=== PATIENT | female | born 1965 | race African-American/Black ===

== ENCOUNTER 2020-08-01 14:24 | Inpatient (IN) ==
[2020-08-01] MEDS ORDERED: ONDANSETRON 4 MG/2 ML VIAL IV STA ×2 (15:08→15:30)
[2020-08-01] MEDS ORDERED: MORPHINE 4 MG/1 ML VIAL IV STA ×2 (15:08→15:30)
[2020-08-01] MEDS ORDERED: DEXTROSE 50% 25 GM/50 ML VIAL IV PRN (15:42)
[2020-08-01] MEDS ORDERED: GLUCAGON 1 MG VIAL IM PRN (15:42)
[2020-08-01] MEDS ORDERED: MORPHINE 4 MG/1 ML VIAL IV PRN (15:42)
[2020-08-01] MEDS ORDERED: hydrALAZINE 20 MG/1 ML VIAL IV PRN (15:42)
[2020-08-01 15:56] LABS: Basophils % 0.4 % (0.0-0.8); Eosinophils # 0.1 10*3/uL (0.0-0.87); Eosinophils % 1.4 % (0.00-10.9); Hematocrit 36.5 VOL% (35.7-47.0); Hemoglobin 12.6 GM/DL (12.0-16.0); Immature Granulocytes % 0.4 %; Immature Granulocytes Absolute 0.04 #; Lymphocytes # 2.1 10*3/uL (1.4-4.0); Lymphocytes % 21.4 % (21.3-54.2); Mean Corpuscular HGB Conc 34.5 GM/DL (32-36); Mean Corpuscular Volume 88.8 FL (87-102); Mean Platelet Volume 10.1 FL (9.6-12.0); Monocytes % 7.7 % (1.7-12.7); Neutrophils % 68.7 % (38.7-73.9); Platelet Count 325 T/CUMM (130-400); Red Blood Count 4.11 MC/CUMM (3.8-5.5); Red Cell Distribution Width 14.2 % (9.3-17.3)
[2020-08-01 16:24] LABS: Calcium 9.3 MG/DL (8.5-10.1); Osmolality,Calculated 276.5 MOS/KG (273-304); Potassium 3.6 MMOL/L (3.5-5.1)
[2020-08-01] MEDS: HYDROmorphone 2 MG/1 ML VIAL IV PRN ×2 (19:56→23:47)
[2020-08-01] MEDS: ONDANSETRON 4 MG/2 ML VIAL IV PRN ×2 (19:57→23:50)
[2020-08-02] MEDS: HYDROmorphone 2 MG/1 ML VIAL IV PRN ×9 (03:10→23:46)
[2020-08-02 06:17] LABS: Basophils % 0.3 % (0.0-0.8); Eosinophils # 0.2 10*3/uL (0.0-0.87); Eosinophils % 1.7 % (0.00-10.9); Hematocrit 32.1 VOL% (35.7-47.0); Immature Granulocytes % 0.3 %; Immature Granulocytes Absolute 0.04 #; Lymphocytes # 3.5 10*3/uL (1.4-4.0); Lymphocytes % 29.6 % (21.3-54.2); Mean Corpuscular HGB Conc 34.3 GM/DL (32-36); Mean Corpuscular Volume 90.4 FL (87-102); Mean Platelet Volume 10.5 FL (9.6-12.0); Monocytes % 12.2 % (1.7-12.7); Neutrophils % 55.9 % (38.7-73.9); Platelet Count 272 T/CUMM (130-400); Red Blood Count 3.55 MC/CUMM (3.8-5.5); Red Cell Distribution Width 14.4 % (9.3-17.3); White Blood Count 11.8 T/CUMM (4-12)
[2020-08-02 06:45] LABS: Osmolality,Calculated 278.5 MOS/KG (273-304); Potassium 3.4 MMOL/L (3.5-5.1)
[2020-08-02] MEDS ORDERED: fentaNYL 100 MCG/2 ML VIAL ONE (06:51)
[2020-08-02] MEDS ORDERED: MIDAZOLAM 2 MG/2 ML VIAL ONE (06:51)
[2020-08-02] MEDS ORDERED: ceFAZolin 1,000 MG VIAL ONE (07:21)
[2020-08-02] MEDS ORDERED: KETOROLAC 30 MG/1 ML VIAL ONE (07:48)
[2020-08-02] MEDS ORDERED: LIDOCAINE 2% 5 ML VIAL ONE (07:48)
[2020-08-02] MEDS ORDERED: DEXAMETHASONE 4 MG/1 ML VIAL ONE (07:48)
[2020-08-02] MEDS ORDERED: ONDANSETRON 4 MG/2 ML VIAL ONE (07:48)
[2020-08-02] MEDS ORDERED: ACETAMINOPHEN INJ 1,000 MG/100 ML VIAL IV ONE (07:48)
[2020-08-02] MEDS ORDERED: propofoL 200 MG/20 ML VIAL IV ONE (07:48)
[2020-08-02] MEDS ORDERED: POTASSIUM CHLORIDE 20 MEQ TABLET PO ONE (07:50)
[2020-08-02] MEDS ORDERED: MEPERIDINE 25 MG/1 ML VIAL IV PRN (08:47)
[2020-08-02] MEDS ORDERED: ONDANSETRON 4 MG/2 ML VIAL IV PRN (08:47)
[2020-08-02] MEDS ORDERED: LACTATED RINGERS 1,000 ML IV ONE (08:50)
[2020-08-02] MEDS ORDERED: PHENYLEPHRINE 1 MG/10 ML SYRINGE IV ONE (08:50)
[2020-08-02] MEDS ORDERED: SEVOFLURANE 1 UNIT/15 MINUTE INH ONE ×2 (08:50→09:12)
[2020-08-02] MEDS: PANTOPRAZOLE 40 MG VIAL IV SCH (11:29)
[2020-08-02] MEDS ORDERED: diphenhydrAMINE CAP 25 MG CAPSULE PO PRN (20:30)
[2020-08-03] MEDS: HYDROmorphone 2 MG/1 ML VIAL IV PRN ×4 (05:45→17:20)
[2020-08-03] MEDS: ONDANSETRON 4 MG/2 ML VIAL IV PRN (05:54)
[2020-08-03 06:29] LABS: Basophils % 0.3 % (0.0-0.8); Eosinophils # 0.1 10*3/uL (0.0-0.87); Eosinophils % 0.7 % (0.00-10.9); Hematocrit 24.1 VOL% (35.7-47.0); Hemoglobin 8.5 GM/DL (12.0-16.0); Immature Granulocytes % 0.7 %; Immature Granulocytes Absolute 0.07 #; Lymphocytes # 2.2 10*3/uL (1.4-4.0); Lymphocytes % 21.1 % (21.3-54.2); Mean Corpuscular HGB Conc 35.3 GM/DL (32-36); Mean Corpuscular Volume 88.3 FL (87-102); Mean Platelet Volume 12.6 FL (9.6-12.0); Monocytes % 11.9 % (1.7-12.7); Neutrophils % 65.3 % (38.7-73.9); Platelet Count 137 T/CUMM (130-400); Red Blood Count 2.73 MC/CUMM (3.8-5.5); Red Cell Distribution Width 14.2 % (9.3-17.3); White Blood Count 10.5 T/CUMM (4-12)
[2020-08-03 06:44] LABS: Calcium 8.7 MG/DL (8.5-10.1); Osmolality,Calculated 279.5 MOS/KG (273-304); Potassium 3.9 MMOL/L (3.5-5.1)
[2020-08-03 06:46] LABS: Hypochromasia 1+; Microcytosis 1+; Platelet Estimate Adequate
[2020-08-03] MEDS: PANTOPRAZOLE 40 MG VIAL IV SCH (09:50)
[2020-08-03] MEDS: tiZANidine 4 MG TABLET PO SCH (20:46)
[2020-08-03] MEDS ORDERED: GABAPENTIN 300 MG CAPSULE PO SCH (21:00)
[2020-08-03] MEDS: SODIUM CHLORIDE 0.9% 1,000 ML IV SCH (21:40)
[2020-08-04] MEDS: HYDROmorphone 2 MG/1 ML VIAL IV PRN ×2 (00:13→03:49)
[2020-08-04 06:04] LABS: Basophils % 0.4 % (0.0-0.8); Eosinophils # 0.2 10*3/uL (0.0-0.87); Eosinophils % 1.8 % (0.00-10.9); Hematocrit 25.1 VOL% (35.7-47.0); Hemoglobin 8.9 GM/DL (12.0-16.0); Immature Granulocytes % 0.6 %; Immature Granulocytes Absolute 0.07 #; Lymphocytes # 2.5 10*3/uL (1.4-4.0); Lymphocytes % 22.9 % (21.3-54.2); Mean Corpuscular HGB Conc 35.5 GM/DL (32-36); Mean Platelet Volume 10.8 FL (9.6-12.0); Neutrophils % 64.3 % (38.7-73.9); Platelet Count 226 T/CUMM (130-400); Red Blood Count 2.82 MC/CUMM (3.8-5.5)
[2020-08-04 06:31] LABS: Calcium 8.9 MG/DL (8.5-10.1); Osmolality,Calculated 275.5 MOS/KG (273-304); Potassium 3.6 MMOL/L (3.5-5.1)
[2020-08-04] MEDS: tiZANidine 4 MG TABLET PO SCH (08:02)
[2020-08-04] MEDS: PANTOPRAZOLE 40 MG VIAL IV SCH (08:03)
[2020-08-04] MEDS ORDERED: busPIRone 10 MG TABLET PO SCH (09:00)
[2020-08-04] MEDS ORDERED: SERTRALINE 100 MG TABLET PO SCH (09:00)
[2020-08-04] MEDS: SODIUM CHLORIDE 0.9% 1,000 ML IV SCH (11:02)
[2020-08-04 11:16] VITALS: BP 113/50
== END 2020-08-04 12:45 | disposition home health service (06) | DRG 494 ==
LOC: EDUNIT# → N.ED 14:24 → N.EDINP 14:24 → SUATTDRO 15:42 → N.EDINP 17:42 → N.3E 17:57
PROVIDERS: ADMIT Phlebology; ATTEND Internal Medicine